=== PATIENT | female | born 1995 | race Caucasian/White ===

== ENCOUNTER 2017-12-29 02:20 | Emergency (ER) | payer BC, OTHER ==
[~2017-12-29] VITALS: Ht 165.1 cm; Wt 74.8 kg
[2017-12-29] MEDS ORDERED: BIRTH CONTROLL (02:32)
[2017-12-29] MEDS ORDERED: DOXYCYCLINE 10100 MG PO (02:54)
[2017-12-29] MEDS ORDERED: TRAMADOL 50 MG50 MG PO (02:54)
[2017-12-29 03:02] VITALS: BP 112/70
== END 2017-12-29 03:05 | disposition home or self-care (01) ==
LOC: M.ERS 02:20
DX: L03.116 Cellulitis of left lower limb (principal)